=== PATIENT | male | born 1935 | race Caucasian/White ===

== ENCOUNTER 2017-11-14 10:51 | Emergency (ER) | payer MEDICARE, BC ==
[~2017-11-14] VITALS: Ht 182.9 cm; Wt 75.0 kg
[2017-11-14 11:04] VITALS: BP 155/84; PULSE 75; RESP 18; TEMP 98.1; O2SAT 98
[2017-11-14 11:11] VITALS: BP 155/84; PULSE 75; RESP 18; TEMP 98.1; O2SAT 97
--- NOTE | 2017-11-14 11:26 | PD ---
HPI Chief Complaint: Fall Time Seen by Provider: 11:23 Travel History International Travel<30 days: No Contact w/Intl Traveler<30days: No Traveled to known affect area: No History of Present Illness HPI 81-year-old male with history of A. fib, CHF, presents emergency department for evaluation following a trip and fall. Patient tripped and fell, striking his left face on the ground. He did not lose consciousness. He did sustain a laceration. Patient reports moderate pain but does not want any pain control at this time. Denies chest or tightness. No difficulty breathing. No nausea vomiting. No focal deficits or weakness. He has no other symptoms to report. PFSH Past Medical History Hx Anticoagulant Therapy: Yes Atrial Fibrillation: Yes Cardiac Catheterization: Yes Cardiovascular Problems: Yes (A-FIB, [place] ) Congestive Heart Failure: Yes Tetanus Vaccination: < 5 Years Influenza Vaccination: No ?: Not Social History Alcohol Use: Yes (WINE OCCASIONALLY ) Tobacco Use: No (20 PACK YEARS) Substance Use: No Allergies-Medications (Allergen,Severity, Reaction): Coded Allergies: No Known Allergies (Unverified , 11/14/17) Review of Systems Except as stated in HPI: all other systems reviewed are Neg Physical Exam Narrative GENERAL: Well-nourished elderly male patient, in no acute distress. SKIN: Focused skin assessment warm/dry. Abrasions on the anterior aspect of the bilateral knees. There is no abrasion on the left medial hand. HEAD: Normocephalic. 3 severe laceration above the left eyebrow with underlying hematoma. EYES: Pupils equal and round. No scleral icterus. No injection or drainage. ENT: Mucosa pink and moist. No erythema or exudates. No uvular edema. No uvular , palatal, or tonsillar deviation. Airway patent. Nasal turbinates appear normal with dry nasal blood, without purulent drainage or septal hematoma. NECK: Trachea midline. No JVD. Cervical collar in place CARDIOVASCULAR: Regular rate. No murmur appreciated. RESPIRATORY: No accessory muscle use. Clear to auscultation. Breath sounds equal bilaterally. GASTROINTESTINAL: Abdomen soft, non-tender, nondistended. Hepatic and splenic margins not palpable. MUSCULOSKELETAL: No obvious deformities. No clubbing. No cyanosis. No edema. Patient has full flexion extension of all extremities. Sensation intact distal extremities. NEUROLOGICAL: Awake and alert. No obvious cranial nerve deficits. Motor grossly within normal limits. Normal speech. PSYCHIATRIC: Appropriate mood and affect; insight and judgment normal. Data Data Last Documented VS Vital Signs Date Time Temp Pulse Resp B/P (MAP) Pulse Ox O2 Delivery O2 Flow Rate FiO2 11/14/17 11:11 98.1 75 18 155/84 (107) 97 Room Air Orders Orders Ct Brain W/O Iv Contrast(Rout) (11/14/17 ) Ct Facial Bones W/O Iv Cont (11/14/17 ) Ct Cerv Spine W/O Contrast (11/14/17 ) Tetanus/Diphtheria Tox Adult (Tetanus/Di (11/14/17 11:45) Lidocai-Epi 1%-1:100,000 Inj (Xylocaine- (11/14/17 11:45) Lidocai-Epi 1%-1:100,000 Inj (Xylocaine- (11/14/17 12:09) Lidocai-Epi 1%-1:100,000 Inj (Xylocaine- (11/14/17 12:15) Remove Cervical Collar (11/14/17 13:02) Ed Discharge Order (11/14/17 13:02) MDM Medical Decision Making Medical Screen Exam Complete: Yes Emergency Medical Condition: Yes Medical Record Reviewed: Yes Differential Diagnosis Minor head injury versus intracranial hemorrhage versus laceration versus fracture versus abrasion versus avulsion Narrative Course 81-year-old male presents to emergency department following a trip and fall. Patient appears nontoxic. He is a noted history. He has no focal deficits or weakness. Last Impressions Maxillofacial CT 11/14/17 0000 Signed Impressions: Service Date/Time: November 11:54 - CONCLUSION: Minimally displaced maxillary fractures on the left. Deandre Nj MD Head CT 11/14/17 0000 Signed Impressions: Service Date/Time: November 11:50 - CONCLUSION: 1. Age-appropriate atrophy. No acute findings in the brain. 2. Left anterior maxillary sinus wall fracture with opacification of the left maxillary sinus. 3. Left superolateral periorbital soft tissue swelling without evidence of radiopaque foreign body or fracture. Kiet Salvador MD Findings are discussed my attending physician. I've also discussed the findings with the patient and advised sinus precautions follow-up with craniofacial surgery. Patient be started on Augmentin. Encouraged to return immediately with any acute worsening symptoms. Procedures Procedure Narrative LACERATION LOCATION: Left eyebrow LENGTH: 3 cm NUMBER OF STITCHES/SHANDRA: 6 sutures REPAIR: The area of the laceration was prepped with Betadine and sterilely draped. The laceration was infiltrated with 1% lidocaine with epinephrine. The wound was copiously irrigated and explored without evidence of foreign body , tendon injury or neurovascular injury. The wound was closed using 4-0 Prolene. This was a single layer repair. A sterile dressing was applied. The patient was advised to keep the dressing clean and dry. Patient tolerated the procedure well. Diagnosis Primary Impression: Minor head injury without loss of consciousness Qualified Codes: S09.90XA - Unspecified injury of head, initial encounter Additional Impressions: Laceration of eyebrow, left Qualified Codes: S01.112A - Laceration without foreign body of left eyelid and periocular area, initial encounter Maxillary fracture, left side, initial encounter for closed fracture Referrals: Homar Morales DMD Primary Care Physician Patient Instructions: Care For Your Stitches (ED), Facial Fracture (ED), General Instructions, Head Injury (ED) Additional Instructions: Ice to the affected area Follow-up with primary care provider Tylenol as directed on the package as needed for pain Open-mouth sneezes Do not blow your nose Seek cranial facial specialist evaluation Sutures are to be removed in 5-7 days. This can be done emergency department a primary care provider's office Keep them clean. You may shower Return immediately to emergency department with any acute worsening symptoms. Med/Other Pt SpecificInfo: Prescription(s) given Scripts Hydrocodone-Acetaminophen ([place]) 5 Mg-325 Mg Tab 1 TAB PO Q6H Y for PAIN GREATER THAN 7, #12 TAB 0 Refills Prov: Renee Velarde 11/14/17 Amoxicillin-Clavulanate (Augmentin) 500-125 mg Tab 500 MG PO BID for Infection for 10 Days, TAB 0 Refills Prov: Renee Velarde 11/14/17 Disposition: 01 DISCHARGE HOME Condition: Stable Renee Velarde Nov 14, 2017 11:24
[2017-11-14] MEDS ORDERED: LIDOCAINE 1%/EPINEPHrine 1:100,000 SOLN 20 ML VIAL INFIL ONE (11:45)
[2017-11-14] MEDS ORDERED: TETANUS/DIPHTHERIA TOXOID ADULT 0.5 ML VIAL IM ONE (11:45)
[2017-11-14] MEDS ORDERED: LIDOCAINE 1%/EPINEPHrine 1:100,000 SOLN 50 ML VIAL ONE (12:09)
[2017-11-14] MEDS ORDERED: LIDOCAINE 1%/EPINEPHrine 1:100,000 SOLN 50 ML VIAL INFIL ONE (12:15)
--- NOTE | 2017-11-14 12:36 | RADRPT ---
EXAM DATE/TIME: 11/14/2017 11:50 [facility] COMPARISON: No previous studies available for comparison. INDICATIONS : Patient tripped and fell, laceration to upper lip and left eyebrow RADIATION DOSE: 69.15 CTDIvol (mGy) MEDICAL HISTORY : Cardiovascular disease. SURGICAL HISTORY : None. ENCOUNTER: Initial ACUITY: 2 days PAIN SCALE: 2/10 LOCATION: cranial TECHNIQUE: Multiple contiguous axial images were obtained of the head. Using automated exposure control and adj ustment of the mA and/or kV according to patient size, radiation dose was kept as low as reasonably a chievable to obtain optimal diagnostic quality images. DICOM format image data is available electro nically for review and comparison. FINDINGS: CEREBRUM: The ventricles are normal for age. No evidence of midline shift, mass lesion, hemorrhage or acute in farction. No extra-axial fluid collections are seen. POSTERIOR FOSSA: The cerebellum and brainstem are intact. The 4th ventricle is midline. The cerebellopontine angle i s unremarkable. EXTRACRANIAL: There is a internally displaced fracture of the anterior wall of the left maxillary sinus and complet e opacification of the visualized portion of left maxillary sinus. SKULL: Left lateral supraorbital soft tissue swelling without radiopaque foreign body. The calvaria is intac t. No evidence of skull fracture. CONCLUSION: 1. Age-appropriate atrophy. No acute findings in the brain. 2. Left anterior maxillary sinus wall fracture with opacification of the left maxillary sinus. 3. Left superolateral periorbital soft tissue swelling without evidence of radiopaque foreign body or fracture. Kiet Salvador MD on November 14, 2017 at 12:30 Board Certified Radiologist. This report was verified electronically.
--- NOTE | 2017-11-14 12:38 | RADRPT ---
EXAM DATE/TIME: 11/14/2017 11:54 [facility] COMPARISON: No previous studies available for comparison. INDICATIONS : Patient tripped and fell, laceration to upper lip and left eyebrow RADIATION DOSE: 26.35 CTDIvol (mGy) MEDICAL HISTORY : Cardiovascular disease. SURGICAL HISTORY : None. ENCOUNTER: Initial ACUITY: 1 day PAIN SCORE: 2/10 LOCATION: facial TECHNIQUE: Volumetric scanning of the facial bones was performed. Using automated exposure control and adjustme nt of the mA and/or kV according to patient size, radiation dose was kept as low as reasonably achiev able to obtain optimal diagnostic quality images. DICOM format image data is available electronicall y for review and comparison. FINDINGS: ORBITS: The orbital and infraorbital osseous structures are intact. The retroconal structures have a normal configuration. No radiopaque foreign bodies are seen. NASAL BONE: The nasal bone and maxillary spine are intact ZYGOMATIC ARCHES: Symmetric without evidence of fracture. SINUSES: There are minimally displaced fractures involving the anterior, medial and lateral hernandez of the left maxillary antrum. The sinuses completely opacified. NASAL CAVITY: The nasal septum is intact and midline. The lacrimal ducts are intact. SOFT TISSUES: No radiopaque foreign bodies seen. No soft-tissue swelling is seen. INTRACRANIAL: No intracranial air seen. CRIBIFORM PLATE: Grossly intact. CONCLUSION: Minimally displaced maxillary fractures on the left. Deandre Nj MD on November 14, 2017 at 12:32 Board Certified Radiologist. This report was verified electronically.
--- NOTE | 2017-11-14 12:55 | RADRPT ---
EXAM DATE/TIME: 11/14/2017 11:53 [facility] COMPARISON: No previous studies available for comparison. INDICATIONS : Patient tripped and fell, laceration to upper lip and left eyebrow RADIATION DOSE: 26.90 CTDIvol (mGy) MEDICAL HISTORY : Cardiovascular disease. SURGICAL HISTORY : None. ENCOUNTER: Initial ACUITY: 1 day PAIN SCALE: 0/10 LOCATION: neck TECHNIQUE: Volumetric scanning of the cervical spine was performed. Multiplanar reconstructions in the sagittal, coronal and oblique axial planes were performed. Using automated exposure control and adjustment o f the mA and/or kV according to patient size, radiation dose was kept as low as reasonably achievable to obtain optimal diagnostic quality images. DICOM format image data is available electronically f or review and comparison. FINDINGS: There is minimal anterolisthesis of C4 with respect C5 and there is mild reversal of the upper cervic al lordosis. Vertebral body height is maintained. The posterior elements are in normal alignment with out evidence of locked or perched facets. There is moderate height atrophic arthropathy involving the left facet joints C2-C4. Moderate posterior osteophytes are present at C4-5 and C5-6. The atlantoaxi al articulation is intact. Right apical bulla. C2-C3: No fracture seen. The neural foramina are patent. C3-C4: No fracture seen. Moderate severity left-sided bony neural foraminal stenosis. C4-C5: No fracture seen. Moderate severity left-sided bony neural foraminal stenosis. C5-C6: No fracture seen. The neural foramina are patent. C6-C7: No fracture seen. The neural foramina are patent. C7-T1: No fracture seen. The neural foramina are patent. CONCLUSION: 1. No evidence of compression deformity or fracture. 2. 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 Kiet Salvador MD on November 14, 2017 at 12:48 Board Certified Radiologist. This report was verified electronically.
[2017-11-14] MEDS ORDERED: NORC5TAB PO (13:10)
[2017-11-14] MEDS ORDERED: AUGM500T7 PO (13:10)
== END 2017-11-14 14:00 | disposition home or self-care (01) ==
LOC: NEPE 10:51
DX: S02.40FA Zygomatic fracture, left side, initial encounter for closed fracture (principal); S01.112A Laceration without foreign body of left eyelid and periocular area, initial encounter; I48.91 Unspecified atrial fibrillation; I50.9 Heart failure, unspecified; W01.0XXA Fall on same level from slipping, tripping and stumbling without subsequent striking against object, initial encounter; Z23 Encounter for immunization
CPT/HCPCS: 12013; 70450; 70486; 72125; 90471; 90714